=== PATIENT | male | born 1945 | race Caucasian/White ===

== ENCOUNTER 2017-01-14 09:36 | Inpatient (IN) | payer MEDICARE, OTHER ==
[~2017-01-14] VITALS: Ht 195.6 cm; Wt 75.3 kg
[~2017-01-14 09:36] MED LIST: 00186-0370-20 IH; ALEVE220 MG PO; ASMANEX TW0.22 MG/AC IH; ASPIRIN E.C. 8181 MG PO; CLARITIN 1010 MG/TAB PO; COLACE 100100 MG/CAP PO; FORADIL AERO0.012 MG IH; MEDI-FIRST ASP325 MG PO; NORVASC2.5 MG PO; OMEPRAZOLE20 MG PO; PROSCAR 5MG5 MG PO; PROSCAR PO; SPIRIVA RE2.5 MCG/Ac IH; THEO-DUR 2200 MG/TAB PO; VENTOLIN0.09 MG IH; VITAMIN D31000 I1 PO
[2017-01-14 10:58] LABS: HEMATOCRIT 42.3 % (42.0-52.0); HEMOGLOBIN 14.7 g/dl (13.5-18.0); MEAN CELL VOLUME 93 fl (80.0-100.0); MEAN CORPUSCULAR HEMOGLOBIN 32 pg (27.0-31.0); MEAN CORPUSCULAR HGB CONC 35 g/dl (33.0-37.0); MEAN PLATELET VOLUME 8.9 fl (7.4-10.4); PLATELET COUNT 234 K/mm3 (130-400); RED BLOOD COUNT 4.56 M/mm3 (4.20-5.60); WHITE BLOOD COUNT 4.6 K/mm3 (4.8-10.8)
[2017-01-14 11:00] LABS: ADJUSTED CALCIUM 9.4 mg/dL (8.4-10.2); ALBUMIN 3.8 gm/dL (3.5-5.0); BILIRUBIN,TOTAL 0.6 mg/dL (0.0-1.0); CALCIUM 9.2 mg/dL (8.4-10.2); CREATININE, serum 0.8 mg/dL (0.66-1.25)
[2017-01-14 11:09] LABS: ADD PATHOLOGY DIFF REVIEW NO
[2017-01-14 11:14] LABS: TROPONIN-I 0.111 ng/mL (0.000-0.034)
[2017-01-14] MEDS ORDERED: ALEVE 220MG220 MG PO (12:16)
[2017-01-14] MEDS ORDERED: PRILOSEC 20MG20 MG PO (12:16)
[2017-01-14 13:11] LABS: EOSINOPHIL 1 % (0-4); NEUTROPHILS 44 % (42.0-75.2); TOTAL CELLS COUNTED 100
[2017-01-14 13:15] LABS: HYPOCHROMIA 1+; POIKILOCYTOSIS 1+; TEAR DROP CELLS 1+
[2017-01-14 15:59] VITALS: BP 108/61; PULSE 69; TEMP 97.6
[2017-01-14 16:19] VITALS: BP 108/61; PULSE 66; TEMP 98
[2017-01-14 16:20] VITALS: BP 174/67; PULSE 74; TEMP 99.8
[2017-01-14] MEDS ORDERED: SINGULAIR 110 MG/TAB PO (18:45)
[2017-01-14 19:35] VITALS: BP 91/65; PULSE 77; TEMP 97.1
[2017-01-14 22:42] VITALS: BP 101/52; PULSE 106; TEMP 98.7
[2017-01-15 04:19] VITALS: BP 116/58; PULSE 64; TEMP 97.5
[2017-01-15 08:50] VITALS: BP 111/69; PULSE 79; TEMP 96.9
[2017-01-15 11:45] VITALS: BP 97/45; PULSE 77; TEMP 97.2
[2017-01-15 13:38] VITALS: BP 105/65; PULSE 88
[2017-01-15 16:23] VITALS: BP 90/50; PULSE 77; TEMP 97.6
[2017-01-15 21:13] VITALS: BP 111/58; PULSE 66; TEMP 98.1
[2017-01-16] VITALS (7 sets, daily range): BP systolic 92–122; BP diastolic 44–77; PULSE 60–77; TEMP 97.1–98
[2017-01-17 02:49] VITALS: BP 122/64; PULSE 57; TEMP 97.9
[2017-01-17 08:32] VITALS: BP 115/98; PULSE 67; TEMP 97.4
[2017-01-17 11:53] VITALS: BP 108/67; PULSE 71; TEMP 98.3
[2017-01-17 17:30] VITALS: BP 111/66; PULSE 75; TEMP 97.5
[2017-01-17 19:53] VITALS: BP 119/64; PULSE 70; TEMP 98
[2017-01-18 00:49] VITALS: BP 112/58; PULSE 104; TEMP 97.8
[2017-01-18 09:02] VITALS: BP 121/69; PULSE 64; TEMP 97.5
[2017-01-18 12:15] VITALS: BP 109/71; PULSE 67; TEMP 97.3
[2017-01-18 13:04] LABS: ARTERIAL BLD GAS O2 SATURATION 95.6 % (92-100); ARTERIAL BLD GAS TCO2 CT 25.5; ARTERIAL BLOOD GAS BASE EXCESS 1.2 (-2-2); ARTERIAL BLOOD GAS HCO3 24.5 meq/L (22-26); ARTERIAL BLOOD GAS PHT 7.47 C (7.35-7.45); ARTERIAL BLOOD GAS PO2 76.2 mmHg (80-100); ARTERIAL BLOOD GAS PO2T 76.2 (80-100); ARTERIAL BLOOD GAS pH 7.47 (7.35-7.45); OXYHEMOGLOBIN 94.9 %
[2017-01-18 13:06] LABS: ALLEN TEST YES; ALLENS TEST RESULT PASS; ATS? YES
[2017-01-18 15:42] VITALS: BP 99/54; PULSE 73; TEMP 97.5
[2017-01-18 21:25] VITALS: BP 107/62; PULSE 80; TEMP 97.7
[2017-01-19 00:07] VITALS: BP 113/75; PULSE 67; TEMP 97.9
[2017-01-19 04:32] VITALS: BP 100/55; PULSE 57; TEMP 97.5
[2017-01-19 08:02] VITALS: BP 105/72; PULSE 72; TEMP 96.9
[2017-01-19 11:19] VITALS: BP 109/69; PULSE 65; TEMP 97.6
[2017-01-19 15:34] VITALS: BP 108/68; PULSE 72; TEMP 97.7
[2017-01-19 20:10] VITALS: BP 122/81; PULSE 62; TEMP 97.4
[2017-01-20] VITALS (8 sets, daily range): BP systolic 96–115; BP diastolic 51–64; PULSE 60–107; TEMP 96.9–98.6
[2017-01-20] MEDS ORDERED: PREDNISONE20 MG PO ×2 (11:18→12:09)
[2017-01-20] MEDS ORDERED: PROSCAR 5MG5 MG PO (11:24)
[2017-01-20] MEDS ORDERED: MUCINEX DM 30 M1 TE1 PO (11:24)
== END 2017-01-20 15:04 | disposition home health service (06) | DRG 190 ==
LOC: COL.ER 09:36 → MEDICAL 14:29
PROVIDERS: Internal Medicine; Nurse Practitioner
DX: J44.1 Chronic obstructive pulmonary disease with (acute) exacerbation (principal); I21.4 Non-ST elevation (NSTEMI) myocardial infarction; E43 Unspecified severe protein-calorie malnutrition; I10 Essential (primary) hypertension; E86.0 Dehydration; F17.210 Nicotine dependence, cigarettes, uncomplicated; Z68.20 Body mass index [BMI] 20.0-20.9, adult
CPT/HCPCS: 99223-AI; 99232-AI; 99233-AI; 99239; A9502; J0456; J1650; J2550; J2785; J2930; J7030; J7040; J7050; Q9967

== ENCOUNTER 2019-04-18 10:59 | Inpatient (IN) | payer MEDICARE ==
[~2019-04-18] VITALS: Ht 193 cm; Wt 66.8 kg
[~2019-04-18 10:59] MED LIST changes: +ALEVE 220MG220 MG PO; +MUCINEX DM 30 M1 TE1 PO; +PREDNISONE20 MG PO; +PRILOSEC 20MG20 MG PO; +SINGULAIR 110 MG/TAB PO
[2019-04-18 11:39] LABS: BASO % 0.4 % (0.0-2.0); EOS % 0.2 % (0-4.0); GRAN # 4.2 (1.4-6.5); GRAN % 74.7 % (42.2-75.2); HEMATOCRIT 39.7 % (42.0-52.0); HEMOGLOBIN 13.9 g/dl (13.5-18.0); LYMPH # 1.1 (1.2-3.4); LYMPH % 19.3 % (20.0-51.0); MEAN CELL VOLUME 96 fl (80.0-100.0); MEAN CORPUSCULAR HEMOGLOBIN 34 pg (27.0-31.0); MEAN CORPUSCULAR HGB CONC 35 g/dl (33.0-37.0); MEAN PLATELET VOLUME 8.6 fl (7.4-10.4); MONO # 0.3 (0.1-0.6); MONO % 5.2 % (1.7-9.3); PLATELET COUNT 302 K/mm3 (130-400); RED BLOOD COUNT 4.12 M/mm3 (4.20-5.60); REDCELL DISTRIBUTION WIDTH-CV 13.2 % (11.5-14.5)
[2019-04-18 11:44] LABS: ALBUMIN 3.7 gm/dL (3.5-5.0); BILIRUBIN,TOTAL 0.4 mg/dL (0.0-1.0); CREATININE, serum 0.65 (0.66-1.25); POTASSIUM 4.3 mmol/L (3.4-5.0); TOTAL PROTEIN 6.6 gm/dL (6.4-8.2)
[2019-04-18 12:13] LABS: ARTERIAL BLD GAS O2 SATURATION 93.1 % (92-100); ARTERIAL BLD GAS TCO2 CT 25.6; ARTERIAL BLOOD GAS BASE EXCESS -0.1 (-2-2); ARTERIAL BLOOD GAS HCO3 24.4 meq/L (22-26); ARTERIAL BLOOD GAS PCO2 39.7 mmHg (35-45); ARTERIAL BLOOD GAS PO2 64.8 mmHg (80-100); ARTERIAL BLOOD GAS pH 7.41 (7.35-7.45)
[2019-04-18 13:12] LABS: TROPONIN-I < 0.012 ng/mL (0.000-0.035)
--- NOTE | 2019-04-18 14:30 | NUR ---
Pt admitted to ICU bed 2 at this time. Pt transported by bed. Pt placed on rn cardiac upon arrival to unit. Vitals stable upon arrival. Pt c/o a headace that is an intensity of 8/10. Will administer PRN Tylenol once Pt is settled into room. Dr. Cortez notified of Pt admission to unit, will be down to see Pt shortly.
[2019-04-18 15:10] VITALS: BP 127/76; PULSE 94; TEMP 97.6
--- NOTE | 2019-04-18 15:18 | NUR ---
Admission assessment complete at this time. Plan of care reviewed at bedside with patient et grandson. Vitals stable at this time. Additional time taken to address any other needs or concerns. Reports [id number] headache, Tylenol administered PRN per order. See EMAR for documentation. Bed in low and locked position, call light within reach, will continue to monitor.
[2019-04-18 16:00] VITALS: BP 116/61; PULSE 65; TEMP 98.1
--- NOTE | 2019-04-18 16:00 | NUR ---
Pt sleeping comfortably in bed. Vitals stable at this time. Pt reports that his headache has resolved after administration of PRN Tylenol. Will continue to monitor for effectiveness. Bed in low position, call light within reach. Denies any other complaints or concerns at this moment.
--- NOTE | 2019-04-18 18:00 | NUR ---
Arrived to the room at this time. No pain or needs reported. The call light is in reach.
[2019-04-18 19:36] VITALS: BP 114/66; PULSE 82; TEMP 98.2
--- NOTE | 2019-04-18 19:47 | NUR ---
Report given to Caroline. Rickie RN to resume care. No change since arrival to the floor.
[2019-04-18 22:55] VITALS: BP 123/68; PULSE 71; TEMP 97.7
--- NOTE | 2019-04-19 01:59 | NUR ---
1200: PATIENT LAYING IN BED WITH EYES CLOSED. PRESENTS WITH RELAXED BODY POSTURE AND EVEN NON LABORED RESPIRATION @ 16 PER MINUET. OXYGEN 2L/NC IN PLACE. NS @ 125ML/HR INFUSING ORDERED. CALL LIGHT WITHIN REACH.
[2019-04-19 03:20] VITALS: BP 126/73; PULSE 64; TEMP 98.2
[2019-04-19 06:32] LABS: BASO % 0.6 % (0.0-2.0); EOS % 0.9 % (0-4.0); GRAN # 1.8 (1.4-6.5); GRAN % 55.8 % (42.2-75.2); HEMOGLOBIN 12.4 g/dl (13.5-18.0); LYMPH # 1.1 (1.2-3.4); LYMPH % 32.8 % (20.0-51.0); MEAN CELL VOLUME 96 fl (80.0-100.0); MEAN CORPUSCULAR HEMOGLOBIN 33 pg (27.0-31.0); MEAN CORPUSCULAR HGB CONC 34 g/dl (33.0-37.0); MONO # 0.3 (0.1-0.6); MONO % 9.6 % (1.7-9.3); PLATELET COUNT 272 K/mm3 (130-400); RED BLOOD COUNT 3.74 M/mm3 (4.20-5.60)
[2019-04-19 06:39] LABS: CALCIUM 8.4 mg/dL (8.4-10.2); CREATININE, serum 0.62 (0.66-1.25); POTASSIUM 4.1 mmol/L (3.4-5.0)
[2019-04-19 07:09] VITALS: BP 123/69; PULSE 64; TEMP 97.6
--- NOTE | 2019-04-19 07:19 | NUR ---
The patient is sleeping soundly at this time. No signs of pain or needs. The call light is in place.
[2019-04-19 10:52] VITALS: BP 160/90; PULSE 67; TEMP 97.7
[2019-04-19 15:34] VITALS: BP 115/72; PULSE 87; TEMP 97.5
[2019-04-19 19:01] VITALS: BP 127/74; PULSE 65; TEMP 98
--- NOTE | 2019-04-19 20:54 | NUR ---
PT IN BED WITH HOB AT 30 DEGREE ANGLE, LAYING ON RIGHT SIDE. PT ADVISES THAT HE DOES NOT HAVE ANY PAIN ONLY IF HE LAYS FLAT. LUNG SOUND COARSE IN ALL CARMONA AND DENIES SOB. PT PLEASANT AND COOPERATIVE AND NOT HUNGRY AT THIS TIME. PT HAS NO NEEDS CALL LIGHT WITHIN REACH.
[2019-04-19 23:42] VITALS: BP 111/63; PULSE 70; TEMP 98.2
[2019-04-20 03:27] VITALS: BP 126/74; PULSE 67; TEMP 97.7
--- NOTE | 2019-04-20 05:16 | NUR ---
UNEVENTFUL NIGHT FOR PT. PT DID HAVE SOME BACK PAIN THAT HE COMPLAINED ABOUT AROUND 0300, WHICH HE WAS GIVEN TYLENOL FOR. PT GIVEN 360 ML OF WATER. PT STILL HAS NO DESIRE TO EAT OR DRINK. PT DOES USE CALL LIGHT WHEN GETTING OUT OF BED FOR ASSISTANCE. NO NEEDS AT THIS TIME, CALL LIGHT WITHIN REACH.
[2019-04-20 06:21] LABS: BASO % 0.6 % (0.0-2.0); EOS % 0.8 % (0-4.0); GRAN # 1.9 (1.4-6.5); GRAN % 54.4 % (42.2-75.2); LYMPH # 1.2 (1.2-3.4); LYMPH % 34.6 % (20.0-51.0); MEAN CELL VOLUME 95 fl (80.0-100.0); MEAN CORPUSCULAR HEMOGLOBIN 32 pg (27.0-31.0); MEAN CORPUSCULAR HGB CONC 34 g/dl (33.0-37.0); MEAN PLATELET VOLUME 8.7 fl (7.4-10.4); MONO # 0.3 (0.1-0.6); MONO % 9.3 % (1.7-9.3); PLATELET COUNT 271 K/mm3 (130-400); REDCELL DISTRIBUTION WIDTH-CV 12.6 % (11.5-14.5)
[2019-04-20 06:34] LABS: CALCIUM 8.2 mg/dL (8.4-10.2); CREATININE, serum 0.56 (0.66-1.25); POTASSIUM 3.7 mmol/L (3.4-5.0)
[2019-04-20 07:41] VITALS: BP 125/74; PULSE 56; TEMP 97
--- NOTE | 2019-04-20 11:02 | NUR ---
Pt alert and oriented this am. Pt reports nausea and back pain. Pain managed with PRN Tylenol. Pt has not had any emesis this am. Pt up to bathroom x1 assist. Pt dizzy at rest per report. Pt given PRN Zofran this am to manage nausea. Pt refusing PT and only getting up to bathroom. Pt also refusing to eat. Multiple options offered to pt and still denies food. Pt has call light in reach and am assessment and meds completed.
--- NOTE | 2019-04-20 11:20 | NUR ---
Initial visit; Patient thanked Ash Handler for looking in on him and offering God's blessings. Ash Handler will follow up.
[2019-04-20 11:41] VITALS: BP 124/62; PULSE 40; TEMP 97.6
--- NOTE | 2019-04-20 14:21 | NUR ---
EKG DONE SHOWN TO DR LUND AND LONI EDWARDS
--- NOTE | 2019-04-20 15:00 | NUR ---
SW met with patient about discharge planning. Patient lives at home alone. Patient's PCP is Dr. Hamlin or the [facility] and patient obtains prescriptions from [facility] or the [facility]. Patient uses a cane and O2 at home and patient has cleaning services paid for by the [facility] but no nursing, PT, or OT. Patient reports he has a DPOA but is unsure if a copy is in the EMR. Patient will be seen by PT and OT. SW will look for recommendations and follow up with patient after they're made.
[2019-04-20 17:24] VITALS: BP 106/59; PULSE 73; TEMP 98.1
--- NOTE | 2019-04-20 18:30 | NUR ---
Pt alert and oriented. Pt pain managed with requested Motrin and nausea with PRN Zofran. Pt remains on no free water restriction. Pt 1 assist to bathroom. Pt has 2L oxygen via nasal cannula and IV intact no redness or infiltration. Pt encouraged to move and do incentive spirometer. Pt not motivated to do anything and refused to work with PT today. Pt has call light in reach.
[2019-04-20 19:40] VITALS: BP 107/83; PULSE 67; TEMP 98.3
--- NOTE | 2019-04-20 20:44 | NUR ---
Initial shift assessment done- o2 at 2L/nc, Tele on, SOB when returning from bathroom-using purse lip breathing, Did take a couple minutes to breathe easier- Tele on, IV fluids of NS at 75cc/hr, Drinking his HS ensure but refusing any supper
[2019-04-20 23:42] VITALS: BP 104/57; PULSE 65; TEMP 98.3
[2019-04-21 04:07] VITALS: BP 121/73; PULSE 67; TEMP 97.9
--- NOTE | 2019-04-21 05:52 | NUR ---
Quiet night-- called for bathroom 3-4 times during the night- steady on feet , but SOB with any exertion. VSS, remains on o2 at 2L/nc
[2019-04-21 07:04] LABS: BASO % 0.4 % (0.0-2.0); EOS % 0.7 % (0-4.0); GRAN # 3.2 (1.4-6.5); GRAN % 71.6 % (42.2-75.2); HEMATOCRIT 38.3 % (42.0-52.0); HEMOGLOBIN 13.3 g/dl (13.5-18.0); LYMPH # 0.8 (1.2-3.4); LYMPH % 18.8 % (20.0-51.0); MEAN CELL VOLUME 94 fl (80.0-100.0); MEAN CORPUSCULAR HEMOGLOBIN 33 pg (27.0-31.0); MEAN CORPUSCULAR HGB CONC 35 g/dl (33.0-37.0); MEAN PLATELET VOLUME 8.8 fl (7.4-10.4); MONO # 0.4 (0.1-0.6); MONO % 8.3 % (1.7-9.3); PLATELET COUNT 294 K/mm3 (130-400); RED BLOOD COUNT 4.06 M/mm3 (4.20-5.60); REDCELL DISTRIBUTION WIDTH-CV 12.7 % (11.5-14.5)
[2019-04-21 07:20] LABS: CALCIUM 8.6 mg/dL (8.4-10.2); CREATININE, serum 0.55 (0.66-1.25); MAGNESIUM 1.7 mg/dL (1.6-2.3); POTASSIUM 3.7 mmol/L (3.4-5.0)
[2019-04-21 07:57] VITALS: BP 94/53; PULSE 70; TEMP 97.7
--- NOTE | 2019-04-21 08:00 | NUR ---
Pt sleeping in bed upon entry, easily awakened, shift assessments complete, left Pt call light in reach, bed in lowest position.
[2019-04-21 11:22] VITALS: BP 127/77; PULSE 72; TEMP 98
[2019-04-21 16:30] VITALS: BP 151/65; PULSE 48; TEMP 97.7
[2019-04-21 19:38] VITALS: BP 128/83; PULSE 50; TEMP 98.3
--- NOTE | 2019-04-21 19:38 | NUR ---
Pt was in bed during the day, he asked to use the restroom and staff tried to ambulate him, he stood and sat back in the bed unable to support his weight very long, Pt was able to transfer to the bedside commode with assistance of one. Pt was put under fall risk precautions by this [facility] for safety. Vs have remained stable throughout the shift, Pt has had no C/O pain he has had some C/O dizziness.
--- NOTE | 2019-04-21 21:21 | NUR ---
PT IN BED WITH HOB ELEVATED TO 30 DEGREE ANGLE. PT DENIES PAIN OR DISCOMFORT. PT IS SLEEPY AT THIS TIME. DAUGHTER HAD CALLED EARLIER AND ADVISED THAT PT TOLD HER THAT HE HAD FALLEN ON THE BED LAST NIGHT, WHEN HE TRIED TO GET UP AND USE THE BATHROOM. PT WAS ASKED AND HE ADVISED THAT HE DID FALL ON THE BED, BUT HE DID NOT REPORT IT TO ANYONE. PT WAS ADVISED THAT HE IS A HIGH FALL RISK AND THE BED ALARM IS ON, BUT ALSO TO CONTINUE TO USE CALL LIGHT IF HE HAS ANY NEEDS. PT ALSO OFFERED FOOD AND DRINKS, BUT HE DECLINES TO EAT OR DRINK. PT RESTING WITH BOTH EYES CLOSED. NO NEEDS AT THIS TIME. CALL LIGHT IN REACH AND BED ALARM ON.
[2019-04-21 23:43] VITALS: BP 125/69; PULSE 58; TEMP 98.1
--- NOTE | 2019-04-22 01:02 | NUR ---
PT HAS BEEN SLEEPING SINCE BEGINNING OF SHIFT. PT DOES EASILY WAKES UP AND ANSWERS QUESTIONS APPROPRIATELY. PT OFFERED SOMETHING TO DRINK, TO GO TO THE BATHROOM, AND A BREATHING TX, BUT PT DECLINED FOR ALL. ALSO, ASKED IF HE HAD ANY OTHER NEEDS BUT HE DECLINES WELL. PT WAS ASSISTED X1 TO BATHROOM BY REGISTERED NURSE FLOAT POOL AND PT WAS VERY WEAK. PT HAS BEEN IN BED WITH HOB ELEVATED TO 30 DREE ANGLE, BOTH FEET OUT OF BED, WITH BED ALARM ON. ASSISTED PT WITH PUTTING FEET BACK IN BED. PT WAS GIVEN TYLENOL P FOR BACK PAIN RATED AT 10/10 THAT FEELS LIKE SOMEONE HAMMERING ON HIS BACK. PT EASILY GOES BACK TO SLEEP AND NO FURTHER NEEDS AT THIS TIME. CALL LIGHT WITHIN REACH AND BED ALARM ON.
--- NOTE | 2019-04-22 02:09 | NUR ---
PT CONTINUES TO BE WEAK. PT USES CANE BUT CANE NO LONGER WORKING TO ASSIST PT TO AMBULATE. WALKER BROUGHT IN AND WORKING BETTER FOR PT. PT ASSISTED X1 TO BATHROOM AND BACK TO BED. CALL LIGHT WITHIN REACH AND BED ALARM ON.
[2019-04-22 03:55] VITALS: BP 101/49; PULSE 51; TEMP 97.9
--- NOTE | 2019-04-22 05:04 | NUR ---
PT IN BED WITH HOB ELEVATED TO 45 DEGREE ANGLE. NO S/S OF PAIN OR DISCOMFORT AND RESP EVEN AND UNLABORED. CALL LIGHT WITHIN REACH AND BED ALARM IS ON.
--- NOTE | 2019-04-22 06:13 | NUR ---
PT OFFERED BREAKFAST AND ADVISED THAT IT WILL HELP HIM WITH HIS STRENGTH IF HE ATE SOME FOOD. PT DECLINED TO ORDER BREAKFAST AT THIS TIME. ADVISED PT WILL CHECK BACK WITH HIM LATER. CALL LIGHT WITHIN REACH AND BED ALARM ON.
[2019-04-22 06:23] LABS: BASO % 0.8 % (0.0-2.0); EOS % 0.8 % (0-4.0); GRAN # 1.9 (1.4-6.5); GRAN % 48.4 % (42.2-75.2); HEMATOCRIT 37.7 % (42.0-52.0); HEMOGLOBIN 13.3 g/dl (13.5-18.0); LYMPH # 1.6 (1.2-3.4); LYMPH % 38.9 % (20.0-51.0); MEAN CELL VOLUME 94 fl (80.0-100.0); MEAN CORPUSCULAR HEMOGLOBIN 33 pg (27.0-31.0); MEAN CORPUSCULAR HGB CONC 35 g/dl (33.0-37.0); MEAN PLATELET VOLUME 8.7 fl (7.4-10.4); MONO # 0.4 (0.1-0.6); MONO % 10.8 % (1.7-9.3); PLATELET COUNT 300 K/mm3 (130-400); RED BLOOD COUNT 4.03 M/mm3 (4.20-5.60); REDCELL DISTRIBUTION WIDTH-CV 12.5 % (11.5-14.5)
[2019-04-22 06:56] LABS: CALCIUM 8.8 mg/dL (8.4-10.2); CREATININE, serum 0.55 (0.66-1.25); MAGNESIUM 1.7 mg/dL (1.6-2.3); POTASSIUM 3.4 mmol/L (3.4-5.0)
[2019-04-22 08:25] VITALS: BP 108/66; PULSE 83; TEMP 97.9
--- NOTE | 2019-04-22 10:39 | NUR ---
Assessment completed, alert/oriented, vital signs stable, reports ongoing headache/ discussed MRI brain results of NO acute findings, patient refusing to eat and stated this has been ongoing for about a year, heart RRR, lungs CTA/ diminished, report from nursing staff that general weakness is worsening, i have discussed plan of care with the Attending hospitalist
[2019-04-22 14:22] VITALS: BP 132/81; PULSE 80; TEMP 97.7
[2019-04-22 16:36] VITALS: BP 134/75; PULSE 84; TEMP 98.2
[2019-04-22 19:27] VITALS: BP 117/85; PULSE 77; TEMP 98.7
--- NOTE | 2019-04-22 20:00 | NUR ---
PT RESTING IN BED a+oX4. IV FLUSHES WELL, NO REDENSS. NO SWELLING. SHIFT ASSESSMENT COMPLETE. PT ATE 50% OF DINNER. NO NEEDS AT THIS TIME.CALL LIGHT IN REACH BED ALARM ON
--- NOTE | 2019-04-22 22:45 | NUR ---
pt resting in bed A+Ox4. pt currently eating dinner- 50% eaten. pain reported- prn meds given and reported some relief. shift assessment complete. IV flushes well. no redness, no swelling. assisted with urinal. no needs at this time. call light in reach
[2019-04-22 23:37] VITALS: BP 113/61; PULSE 73; TEMP 98.5
[2019-04-23] VITALS (11 sets, daily range): BP systolic 102–150; BP diastolic 62–84; PULSE 67–95; TEMP 97.4–98.4
--- NOTE | 2019-04-23 05:12 | NUR ---
PT HAD AN UNEVENTFUL NIGHT. NPO SINCE MIDNIGHT. FALL PRECAUTIONS IN PLACE. PT SLEPT THROUGHOUT NIGHT. ASSISTED WITH URINAL DURING NIGHT. NO NEEDS AT THIS TIME. CALL LIGHT IN REACH. BED ALARM ON
[2019-04-23 07:04] LABS: BASO % 0.7 % (0.0-2.0); EOS # 0.1 (0.0-0.7); EOS % 2.4 % (0-4.0); GRAN # 2.4 (1.4-6.5); HEMATOCRIT 38.8 % (42.0-52.0); HEMOGLOBIN 13.4 g/dl (13.5-18.0); LYMPH # 1.2 (1.2-3.4); LYMPH % 28.2 % (20.0-51.0); MEAN CELL VOLUME 94 fl (80.0-100.0); MEAN CORPUSCULAR HEMOGLOBIN 33 pg (27.0-31.0); MEAN CORPUSCULAR HGB CONC 35 g/dl (33.0-37.0); MEAN PLATELET VOLUME 9.2 fl (7.4-10.4); MONO # 0.4 (0.1-0.6); MONO % 10.2 % (1.7-9.3); PLATELET COUNT 325 K/mm3 (130-400); RED BLOOD COUNT 4.12 M/mm3 (4.20-5.60); REDCELL DISTRIBUTION WIDTH-CV 12.7 % (11.5-14.5)
[2019-04-23 07:19] LABS: ALBUMIN 3.2 gm/dL (3.5-5.0); BILIRUBIN,TOTAL 0.7 mg/dL (0.0-1.0); CREATININE, serum 0.59 (0.66-1.25); POTASSIUM 3.1 mmol/L (3.4-5.0); TOTAL PROTEIN 5.8 gm/dL (6.4-8.2)
--- NOTE | 2019-04-23 07:22 | NUR ---
report given to BRANDON Barbosa. pt reports no needs
--- NOTE | 2019-04-23 10:15 | NUR ---
Patient laying in bed. Assessment complete. Patient communication short, uninterested in cares. A&O. Lungs diminished throughout. Heart RRR. Patient on 2L NC. C/O SOB at baseline. C/O chest pain, headache and back pain. rating pain 10/10. Administered PRN tylenol. Daughter called to state "by 9pm last night there was not a recliner in the room, this is a must. The bed is hurting his back". Upon entering room, there is a recliner beside the bed. Asked patient if he would like to get up to chair this afternoon after EGD procedure. patient is willing. Patient is currently NPO. Talked with patient about eating afterwards, states he "doesn't have much of appetite". RFA INT IV has some drainage, no fluids running. Potassium IV started, patient not tolerating, stopped. Had route changed to oral. Will administer after EGD. Call light within reach. No other needs.
--- NOTE | 2019-04-23 10:49 | NUR ---
SW attended clinical rounds. Patient is not wanting to eat or work much with therapy. Doctor stressed that patient needs to eat and work with therapy. Doctor also reported that patient will likely need post acute rehab. SW will follow up with patient about post acute rehab after he is seen by PT/OT today.
--- NOTE | 2019-04-23 12:23 | NUR ---
PATIENT DOWN FOR PROCEDURE. ESCORTED IN BED BY KELVIN GRIGSBY.
--- NOTE | 2019-04-23 13:42 | NUR ---
Patient back up to room. Patient drowsy but arousable. Post op vitals started.
--- NOTE | 2019-04-23 17:12 | NUR ---
SW met with patient about SNF choice. SW provided [email or web address] resource list. Patient was also informed about IPR by doctor. Patient reported he would like to review options and speak with the SW tomorrow morning.
--- NOTE | 2019-04-23 19:28 | NUR ---
REPORT GIVEN TO BRANDON BALTAZAR.
--- NOTE | 2019-04-23 20:44 | NUR ---
pt resting in bed A+Ox4. reported 10/10 pain in back- PRN meds given. pt on 2L VIA NC. pt reports SOA- VSS. no free water given. shift assessment complete. ate 100% of dinner. no needs at this time. call light in reach.
--- NOTE | 2019-04-24 02:24 | NUR ---
PT HAS BEEN SLEEPING DURING NIGHT. TELE ON. ASSISTED TO BSC- NOW RESTING IN BED. NO COMPAINTS AT THIS TIME, CALL LIGHT IN REACH, BED ALARM ON
[2019-04-24 04:07] VITALS: BP 130/85; PULSE 67; TEMP 98.2
--- NOTE | 2019-04-24 05:34 | NUR ---
PT HAD AN UNEVENTFUL NIGHT. SLEPT DURING NIGHT. NO COMPLAINTS OF PAIN. ASSISTED TO BSC DURING NIGHT. PT ON ON 2 L VIA NC. ECOURAGED FLUIDS- REFUSED. NO NEEDS AT THIS TIME. CALL LIGHT IN REACH. BED ALARM ON
[2019-04-24 06:57] LABS: BASO % 0.8 % (0.0-2.0); EOS # 0.1 (0.0-0.7); EOS % 2.6 % (0-4.0); GRAN # 2.1 (1.4-6.5); GRAN % 55.6 % (42.2-75.2); HEMATOCRIT 37.5 % (42.0-52.0); HEMOGLOBIN 13.1 g/dl (13.5-18.0); LYMPH # 1.2 (1.2-3.4); LYMPH % 32.3 % (20.0-51.0); MEAN CELL VOLUME 94 fl (80.0-100.0); MEAN CORPUSCULAR HEMOGLOBIN 33 pg (27.0-31.0); MEAN CORPUSCULAR HGB CONC 35 g/dl (33.0-37.0); MEAN PLATELET VOLUME 8.9 fl (7.4-10.4); MONO # 0.3 (0.1-0.6); MONO % 8.2 % (1.7-9.3); PLATELET COUNT 339 K/mm3 (130-400); RED BLOOD COUNT 3.98 M/mm3 (4.20-5.60); REDCELL DISTRIBUTION WIDTH-CV 12.6 % (11.5-14.5)
--- NOTE | 2019-04-24 07:03 | NUR ---
report given to BRANDON Herman. pt sleeping
[2019-04-24 07:09] LABS: CALCIUM 8.9 mg/dL (8.4-10.2); CREATININE, serum 0.6 (0.66-1.25); POTASSIUM 3.6 mmol/L (3.4-5.0)
--- NOTE | 2019-04-24 07:26 | NUR ---
Report received from BRANDON Mayers. Pt resting in bed comfortably. Call light in reach.
[2019-04-24 08:08] VITALS: BP 117/76; PULSE 77; TEMP 97.3
--- NOTE | 2019-04-24 09:17 | NUR ---
Pt resting in bed alert and oriented. Pt c/o lower back and shoulder, which is "chronic" per pt. Call light in reach. Pt's breakfast ordered by BRANDON Herman to encourage pt to eat.
--- NOTE | 2019-04-24 11:06 | NUR ---
Pt gettomg bed bath in bed. No concern at this time. Call light in reach.
[2019-04-24 12:28] VITALS: BP 110/70; PULSE 81; TEMP 97.6
--- NOTE | 2019-04-24 14:43 | NUR ---
Pt resting in bed and c/o back and shoulder pain. Pt agreed to take Tylenol. Call light in reach.
[2019-04-24 16:04] VITALS: BP 98/61; PULSE 79; TEMP 98.1
--- NOTE | 2019-04-24 18:01 | NUR ---
Pt having dinner in chair w. no concern. Pt denied pain. Call light in reach.
--- NOTE | 2019-04-24 18:03 | NUR ---
Pt resting in bed. Pt's dinner has been ordered. Call light in reach.
[2019-04-24 19:02] VITALS: BP 115/58; PULSE 78; TEMP 98.1
--- NOTE | 2019-04-24 19:07 | NUR ---
Report given to BRANDON Mayers. Pt resting in bed comfortably. Call light in reach.
--- NOTE | 2019-04-24 19:40 | NUR ---
PT RESTING IN BED A+OX4. reports his chronic shoulder pain- tylenol given previously. will encourage fluids. 30% of meal eaten. shift assessment complete. pt on 2L via NC. vss. no needs at this time. call light in reach. bed alarm on
[2019-04-24 23:01] VITALS: BP 110/74; PULSE 73; TEMP 97.7
--- NOTE | 2019-04-25 01:53 | NUR ---
pt sleeping during night. encouraging fluids- is not interested.
[2019-04-25 03:57] VITALS: BP 123/83; PULSE 68; TEMP 98.4
--- NOTE | 2019-04-25 05:34 | NUR ---
PT HAD AN UNEVENTFUL NIGHT. CHRONIC SHOULDER PAIN REPORTED AT BEGINNING OF THE NIGHT. PT SLEPT THORUGHOUT NIGHT. PT DID NOT URINATE THROUGHOUT NIGHT- PT DID NOT DRINK OR EAT DURING NIGHT. NO NEEDS AT THIS TIME. CALL LIGHT IN REACH, BED ALARM ON
[2019-04-25 06:35] LABS: CALCIUM 9.2 mg/dL (8.4-10.2); CREATININE, serum 0.64 (0.66-1.25); POTASSIUM 3.8 mmol/L (3.4-5.0)
--- NOTE | 2019-04-25 07:23 | NUR ---
REPORT GIVEN TO BRANDON BELCHER. PT REPORTS NO NEEDS
[2019-04-25 07:31] VITALS: BP 126/78; PULSE 69; TEMP 98
--- NOTE | 2019-04-25 07:59 | NUR ---
Pt assessment complete. Pt is sitting up in bed upon entry, he is sleeping but arouses to voice. Pt reports back pain 10/10, PRN Tylenol administered. Pt denies any N/V. No SOB. Pt tolerating gatorade without issues. Pt offered a shower this morning he declined stating "I can barely stand none the less shower". Bed bath offered, pt declined. POC discussed with patient. He denies any needs at this time. Call light within reach.
--- NOTE | 2019-04-25 11:38 | NUR ---
Met with patient on choice for Nursing care SNF Rehab. Patient reports that he does not care which on he goes to as long as it is local. Patient signed choice form. Patient indciated that screen for all was appropriate. SW sent referrals to [facility] , [facility] , and [facility] . Awaiting screen results. Patient reports that he wants his grandson Pedrito apart of his care,. HOLA attempted call and could not leave message on indentified VM. Will continue to follow
[2019-04-25 11:45] VITALS: BP 101/65; PULSE 85; TEMP 98
--- NOTE | 2019-04-25 14:00 | NUR ---
Pt ate chicken and noodles, pudding and mashed potatoes for lunch. No N/V present will continue to monitor.
[2019-04-25 15:27] VITALS: BP 98/67; PULSE 84; TEMP 97.5
--- NOTE | 2019-04-25 16:32 | NUR ---
Pt sleeping, family brought by a chocolate milkshake, will encourage patient to eat. Does not appear to be in any pain or distress. Will continue to monitor.
--- NOTE | 2019-04-25 19:24 | NUR ---
Pt slept through most of the day. He reported pain once during shift, PRN Tylenol administered. Pt tolerated lunch and dinner thus far without N/V. Pt report given to BRANDON Blake. Call light within reach.
[2019-04-25 20:19] VITALS: BP 111/68; PULSE 83; TEMP 98.4
--- NOTE | 2019-04-25 20:30 | NUR ---
Initial shift assessment done- resting, watching some TV, states having some back pain 04/02- will give Tylenol as ordered,, voided 200cc per urinal- no requests at this time
[2019-04-25 23:43] VITALS: BP 107/70; PULSE 84; TEMP 98.3
[2019-04-26 03:54] VITALS: BP 104/71; PULSE 78; TEMP 97.5
--- NOTE | 2019-04-26 06:27 | NUR ---
Quiet night- VSS, did sleep fairly well- no requests.
[2019-04-26 07:30] VITALS: BP 110/78; PULSE 70; TEMP 97.9
--- NOTE | 2019-04-26 11:33 | NUR ---
Radha, at [facility], reports that they can accept the patient; but that they need to get prior-auth from his insurance. Morenita, from [facility], reports that she would like to come up to the hospital and screen the patient around 1330 today. SW to inform the patient and will continue to follow.
[2019-04-26 11:53] VITALS: BP 102/67; PULSE 86; TEMP 98.4
--- NOTE | 2019-04-26 12:18 | NUR ---
PT SITTING UPRIGHT IN BED. IN TO GIVE AM MEDS. SL INTACT IN R FOREARM. NO SIGNS OF INFILTRATION. THERE IS A SMALL AMT DRIED BLOOD UNDER DRESSING. ASSIST TO CHAIR WITH 2:1 ASSIST USING WALKER AND GAIT BELT. UNSTEADY. INCONTINENT OF URINE. WIPED WITH CLOTHS OF PT'S PER HIS REQUEST. BECOMES VERY SOA WITH ACTIVITY. REFUSES O2 ON UNTIL HE IS BACK IN BED. BACK TO BED AND O2 ON 2L/NC. HAS YELLOW SLIPPER SOCKS ON. DENIES PAIN.
--- NOTE | 2019-04-26 13:05 | NUR ---
The hospitalist would like to have a family meeting with the patient's daughter. HOLA then met with the patient to update on the SNF referrals, discuss having a family meeting, and to inquire his daughter's phone number. The patient informed HOLA that his daughter's name is Libertad, but he refused to give SW his daughters number. He states that he can make decisions and that he can contact her. He states that he could then provide his daughter with 's phone number. HOLA provided the patient with phone number. A psych consult was ordered. Psych to meet with the patient today. SW to continue to follow.
[2019-04-26 15:26] VITALS: BP 103/69; PULSE 79; TEMP 97.9
--- NOTE | 2019-04-26 16:33 | NUR ---
Jordan, at [facility], reports that the patient's insurance is [id number] with them. SW to inform the patient and continue to follow.
--- NOTE | 2019-04-26 16:44 | NUR ---
HOLA contacted the patient's grandson, Pedrito, to update on referrals and to inform of the patient tentatively discharging tomorrow. The patient's grandson was supportive of the patient going to a facility. Pedrito also provided HOLA with his mother's (Caprice) phone number [phone]. Pedrito informed HOLA that the patient is stubborn and if he does not want to do something, he will not. Pedrito requests that HOLA keep him updated on discharge plan. HOLA to continue to follow.
--- NOTE | 2019-04-26 18:11 | NUR ---
Pt's daughter called feed house supervisor concerned no one has been calling her and keeping her updated on the patient's status. This nurse and Evelyn RN, spoke with the patient regarding permission to speak with his daughter. Pt states "I would rather right now than speak to her". Asked the patient again if he gives us permission to talk to her and give her an update, pt again states "don't tell that bitch anything." Pt reassured we would not be speaking with her per his wishes. Pt requesting dinner, ordered for patient. Warm pack provided for L back pain. Call light within reach.
--- NOTE | 2019-04-26 19:12 | NUR ---
Pt had a good day. More cooperative and agreeable to cares. Attempted to sit up in the chair, but patient was too uncomfortable. Agreeable to a bed bath and linen change. Continued pain, pt reports PRN tylenol is not helpful. Pt ate more today, requested foods to nursing staff. Report given to BRANDON Lim. Call light within reach.
--- NOTE | 2019-04-26 19:25 | NUR ---
Recvd call from patient's daughter, Caprice. States she has been unable to receive update, unhappy about father's care and requests transfer to [facility]. Daughter states she is DPOA, documentation requested, will fax documents annita. Caprice [phone].
--- NOTE | 2019-04-26 20:45 | NUR ---
MAUREEN Begum notified of daughter's request for status update and transferred. CARBIDE TOOL DIE MAKER will visit with patient for consent as no DPOA documentation has been received.
--- NOTE | 2019-04-26 21:10 | NUR ---
Spoke to patient with MAUREEN Begum. Patient give verbal consent for daughter to be given status updates. Patient also states he would like to be transferred. At this time patient was alert and oriented to self, place and date.
[2019-04-26 21:25] VITALS: BP 112/78; PULSE 78; TEMP 97.5
--- NOTE | 2019-04-26 22:00 | NUR ---
PT HAD REFUSED VITALS BY MALT HOUSE LOADER ON FIRST ATTEMPT, WAS REATTEMPTED LATER, PT WAS PLEASENT AND COOPERATIVE AT THAT TIME. NO OTHER COMPLAINTS VOICED AT THIS TIME
--- NOTE | 2019-04-26 22:37 | NUR ---
Attempted to contact Caprice. No answer on cell phone. Message left.
[2019-04-26 23:40] VITALS: BP 118/78; PULSE 75; TEMP 98.1
[2019-04-27] VITALS (9 sets, daily range): BP systolic 94–123; BP diastolic 58–77; PULSE 65–93; TEMP 97.1–98.9
--- NOTE | 2019-04-27 05:57 | NUR ---
PT HAD UNEVENTFUL NOC. NO ISSUES OR CONSERNS VOICED OVERNIGHT. APPEARED TO HAVE SLEPT WELL.
[2019-04-27 06:57] LABS: BASO % 0.3 % (0.0-2.0); EOS # 0.1 (0.0-0.7); EOS % 1.6 % (0-4.0); GRAN # 3.5 (1.4-6.5); HEMATOCRIT 39.8 % (42.0-52.0); HEMOGLOBIN 13.5 g/dl (13.5-18.0); LYMPH # 1.6 (1.2-3.4); LYMPH % 28.2 % (20.0-51.0); MEAN CELL VOLUME 97 fl (80.0-100.0); MEAN CORPUSCULAR HEMOGLOBIN 33 pg (27.0-31.0); MEAN CORPUSCULAR HGB CONC 34 g/dl (33.0-37.0); MONO # 0.5 (0.1-0.6); MONO % 8.6 % (1.7-9.3); PLATELET COUNT 363 K/mm3 (130-400); RED BLOOD COUNT 4.11 M/mm3 (4.20-5.60); REDCELL DISTRIBUTION WIDTH-CV 13.6 % (11.5-14.5)
[2019-04-27 07:12] LABS: CALCIUM 9.4 mg/dL (8.4-10.2); CREATININE, serum 0.62 (0.66-1.25); POTASSIUM 4.4 mmol/L (3.4-5.0)
--- NOTE | 2019-04-27 09:21 | NUR ---
PT reports pt refusing to walk or sit up on the side of the bed this morning.
--- NOTE | 2019-04-27 10:30 | NUR ---
Pt assessment complete. Pt is sleeping upon entry, arouses to voice. Breathing is even and unlabored on 2L O2 via NC, dyspneic with any movement. Pt denies SOB. No pain at this time. Pt denies any needs at this time. Call light within reach. Will continue to monitor.
--- NOTE | 2019-04-27 10:56 | NUR ---
HOLA attended clinical rounds. The patient and patient's daughter are wanting to transfer to the [facility]. The hospitalist discussed having a second option, if the [facility] is unable to accept. The patient verbalized understanding. HOLA then contacted and faxed the patient's clinical information to Kavya at the [facility]. Kavya reports that the patient does not qualify for an acute stay at their hospital. HOLA informed the patient's PA. Gas Welder, Milagros, informed HOLA that she has spoke to the patient's daughter an that the daughter has been in contact with the [facility] with the [facility] for the patient to transfer to one of their facilities. HOLA contacted Erin at the [facility]. Erin reports that she does not have the patient's information, but that she could fax HOLA a admissions referral packet. Radha, at [facility], reports that she has received approval from the patient's insurance and are able to accept. HOLA met with the patient to update and inform. The patient reports that he will speak to his daughter and asked HOLA to come back around 1200. HOLA to follow up with the patient.
[2019-04-27] MEDS ORDERED: MIRTAZAPINE7.5 MG PO (13:26)
[2019-04-27] MEDS ORDERED: MIRALAX PA17 GM/Dose PO (13:27)
--- NOTE | 2019-04-27 17:08 | NUR ---
HOLA had faxed a referral to Erin at the [facility]. HOLA then followed up with the patient. The patient reports that he had spoke to his daughter and that he would be agreeable to transfer to [facility]. Radha, at [facility], then contacted HOLA to inform that the patient's insurance is requiring additional information and that they may not approve the patient's stay now, due to him refusing to work with therapy. HOLA then followed up with the patient and patient's grandson, Pedrito, to update and inform. HOLA also consulted Isma with PT. The patient then became cooperative with working with PT. HOLA faxed the patient's PT Note to [facility]. Erin, at [facility], then contacted [facility] to inform that they can accept the patient and that she had spoke to the patient and his grandson and they are agreeable to transfer there. HOLA followed up with the patient and patient's grandson. The patient reports that he is agreeable to go there. HOLA informed the patient's PA. The patient's grandson plans to transfer the patient to the facility tomorrow morning, 04/28. HOLA to continue to follow.
--- NOTE | 2019-04-27 18:51 | NUR ---
Pt had uneventful day, slept most of the day. Refused PT twice today, but sat up on side of bed and to [facility] with the FARM MACHINERY SET UP MECHANIC. Pt tolerated diet without complications. Denied pain through the day. Continues to wear 2L O2 via NC. Pt resting at this time. Call light within reach.
--- NOTE | 2019-04-27 19:42 | NUR ---
REPORTS NO BM FOR 10-12 DAYS.
--- NOTE | 2019-04-27 20:45 | NUR ---
PT RESTING IN BED, EATING DINNER. 100% EATEN. REPORTS "SO SO" PAIN- DENIES NEEDS FOR INTERVENTION . PT REPORTS NO SOA. NO NEEDS AT THIS TIME. CALL LIGHT IN REACH BED AALRM ON
[2019-04-28 03:52] VITALS: BP 112/75; PULSE 74; TEMP 99.7
--- NOTE | 2019-04-28 05:48 | NUR ---
PT HAD AN UNEVENTFUL NIGHT. REPORTED NO PAIN THAT NEEDED INTERVENTION. FALL PRECAUTIONS IN PLACE. PT HAD 175 ML OUTPUT DURING NIGHT. ENCOURAGE ORAL INTAKE OF FLUIDS AND FOOD. IV FLUSHES WELL, NO SWELLING, NO PAIN. NO NEEDS AT THIS TIME. CALL LIGHT IN REACH. BED ALARM ON
--- NOTE | 2019-04-28 07:05 | NUR ---
REPORT GIVEN TO BRANDON ACOSTA. PT REPORTS NO NEEDS
[2019-04-28 07:45] VITALS: BP 119/74; PULSE 74; TEMP 98.2
--- NOTE | 2019-04-28 07:57 | NUR ---
Pt alert and oriented. Pt resting in bed and denies needs. Pt given am meds and am assessment completed. Pt wears oxygen with minimal exertion via nasal cannula. Pt IV clean dry no redness or infiltration. Pt has call light in reach.
[2019-04-28 09:05] VITALS: BP 102/77; PULSE 80; TEMP 98.6
--- NOTE | 2019-04-28 10:29 | NUR ---
The patient is to discharge today, 04/28, to the [facility] for a skilled stay. Transportation to be by private car, via the patient's grandson (Pedrito). The patient was in need of oxygen for the ride to the facility. [facility] was notified and they provided a portable tank to the patient. The patient's grandson is to return the tank back to the hospital. HOLA notified Erin at the [facility] of the patient's departure from the hospital. HOLA also presented and explained the IM form to the patient on 04/27. The patient verbalized understanding, signed, and he was provided a copy. No additional needs at this time. HOLA also updated Radha at [facility].
--- NOTE | 2019-04-28 10:58 | NUR ---
First visit from the administrative technician. No needs right now.
--- NOTE | 2019-04-28 12:45 | NUR ---
Pt alert and oriented. Pt discharge orders given for transfer to [facility] in [place]. Grandson here to transfer pt. 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 Pt escorted to lesley's truck via wheelchair without issue. Report called to Lucille at [facility].
== END 2019-04-28 10:00 | DRG 193 ==
LOC: COL.ER 10:59 → ICU 13:26 → MEDICAL 18:02
PROVIDERS: Family Medicine; Internal Medicine Gastroenterology; Nurse Practitioner Family; Physician Assistant; ADMIT Family Medicine
PROC: 0DB78ZX Excision of Stomach, Pylorus, Via Natural or Artificial Opening Endoscopic, Diagnostic (ICD-10-PCS; principal; 2019-04-23 13:30)
DX: J18.1 Lobar pneumonia, unspecified organism (principal); E43 Unspecified severe protein-calorie malnutrition; J44.0 Chronic obstructive pulmonary disease with (acute) lower respiratory infection; J96.11 Chronic respiratory failure with hypoxia; E87.1 Hypo-osmolality and hyponatremia; Z68.1 Body mass index [BMI] 19.9 or less, adult; N40.0 Benign prostatic hyperplasia without lower urinary tract symptoms; J30.2 Other seasonal allergic rhinitis; Z66 Do not resuscitate; E87.6 Hypokalemia; K29.70 Gastritis, unspecified, without bleeding; K21.9 Gastro-esophageal reflux disease without esophagitis; R62.7 Adult failure to thrive; F17.210 Nicotine dependence, cigarettes, uncomplicated; D64.9 Anemia, unspecified; I10 Essential (primary) hypertension; F43.21 Adjustment disorder with depressed mood; Z88.2 Allergy status to sulfonamides; Z86.73 Personal history of transient ischemic attack (TIA), and cerebral infarction without residual deficits
CPT/HCPCS: OP; 99231-AI; 99232-AI; 99233-AI; A9284; A9585; G0103; G0378; J0456; J0696; J1650; J1885; J2405; J2704; J3480; J7030; J7050; Q9967

== ENCOUNTER → 2019-09-15 | Outpatient (CLI) | payer OTHER ==
[~2019-09-15] MED LIST changes: +MIRALAX PA17 GM/Dose PO; +MIRTAZAPINE7.5 MG PO
[2019-09-15 10:13] LABS: ARTERIAL BLD GAS O2 SATURATION 94.4 % (92-100); ARTERIAL BLD GAS TCO2 CT 26.1; ARTERIAL BLOOD GAS BASE EXCESS 1.3 (-2-2); ARTERIAL BLOOD GAS PCO2 36.7 mmHg (35-45); ARTERIAL BLOOD GAS PO2 66.4 mmHg (80-100); ARTERIAL BLOOD GAS pH 7.45 (7.35-7.45)
== END ==
LOC: COL.PUL 09:58
PROVIDERS: Internal Medicine Pulmonary Disease
DX: J44.9 Chronic obstructive pulmonary disease, unspecified (principal)

== ENCOUNTER → 2021-05-03 | Outpatient (REF) ==
[~2021-05-03] MED LIST changes: +CARDURA 1MG1 MG PO; +DIGITEK0.125 MG PO; +NORCO 325 MG-51 TAB PO; +ONE-A-DAY ESSE1 EACH PO; +OXYGEN NASAL.CANN; +PRILOTC PO; +PROVENTIL0.09 MG/A1 IH; +SENOKOT S 50 MG1 TAB PO; +SSKI1 GM/ML PO; +THEO-24100 MG PO; +VITAMIN D31000 IU PO; +ZITHROMAX500 M2 PO
[2021-05-03 16:28] LABS: COLLECTION METHOD CLEAN CATCH
[2021-05-03 16:36] LABS: PH 6 (5-8); SQUAMOUS EPITHELIAL 0-2 /hpf; URINE APPEARANCE Clear; URINE BACTERIA None Seen /hpf; URINE BILIRUBIN Negative (NEGATIVE); URINE BLOOD Negative (NEGATIVE); URINE COLOR Yellow; URINE GLUCOSE Negative (NEGATIVE); URINE KETONE Negative (NEGATIVE); URINE LEUKOCYTE ESTERASE Negative (NEGATIVE); URINE NITRATE Negative (NEGATIVE); URINE PROTEIN(semi-quant) Negative (NEGATIVE); URINE UROBILINOGEN Negative (NEGATIVE)
[2021-05-03 16:40] LABS: CHOLESTEROL RISK RATIO 3.2
[2021-05-03 16:44] LABS: BASO % 0.8 % (0.0-2.0); EOS # 0.2 (0.0-0.7); EOS % 3.2 % (0-4.0); GRAN # 2.3 (1.4-6.5); GRAN % 49.2 % (42.2-75.2); HEMOGLOBIN 11.5 g/dl (13.5-18.0); LYMPH # 1.9 (1.2-3.4); LYMPH % 40.5 % (20.0-51.0); MEAN CELL VOLUME 99 fl (80.0-100.0); MEAN CORPUSCULAR HEMOGLOBIN 34 pg (27.0-31.0); MEAN CORPUSCULAR HGB CONC 34 g/dl (33.0-37.0); MEAN PLATELET VOLUME 8.8 fl (7.4-10.4); MONO # 0.3 (0.1-0.6); MONO % 6.1 % (1.7-9.3); PLATELET COUNT 307 K/mm3 (130-400); RED BLOOD COUNT 3.42 M/mm3 (4.20-5.60); REDCELL DISTRIBUTION WIDTH-CV 13.2 % (11.5-14.5)
[2021-05-03 17:22] LABS: THYROID STIMULATING HORMONE 0.425 uIU/mL (0.465-4.680)
== END ==
LOC: ZLAB.STJ 16:25
PROVIDERS: Family Medicine
DX: E87.1 Hypo-osmolality and hyponatremia (principal); E44.0 Moderate protein-calorie malnutrition; R97.20 Elevated prostate specific antigen [PSA]; R63.4 Abnormal weight loss

== ENCOUNTER → 2021-05-10 | Outpatient (REF) ==
[2021-05-10 16:02] LABS: BASO % 0.8 % (0.0-2.0); EOS # 0.2 (0.0-0.7); EOS % 3.2 % (0-4.0); GRAN # 2.5 (1.4-6.5); GRAN % 46.3 % (42.2-75.2); HEMOGLOBIN 11.3 g/dl (13.5-18.0); LYMPH # 2.4 (1.2-3.4); LYMPH % 45.2 % (20.0-51.0); MEAN CELL VOLUME 101 fl (80.0-100.0); MEAN CORPUSCULAR HEMOGLOBIN 34 pg (27.0-31.0); MEAN CORPUSCULAR HGB CONC 33 g/dl (33.0-37.0); MEAN PLATELET VOLUME 8.8 fl (7.4-10.4); MONO # 0.2 (0.1-0.6); MONO % 4.3 % (1.7-9.3); PLATELET COUNT 308 K/mm3 (130-400); RED BLOOD COUNT 3.35 M/mm3 (4.20-5.60); REDCELL DISTRIBUTION WIDTH-CV 13.2 % (11.5-14.5)
[2021-05-10 16:03] LABS: HEMATOCRIT 33.9 % (42.0-52.0)
[2021-05-10 16:12] LABS: ALANINE AMINOTRANSFERASE 14 U/L (4-49); ALBUMIN 3.3 gm/dL (3.5-5.0); ALKALINE PHOSPHATASE 58 U/L (50-136); ANION GAP 4 mmol/L (7-16); AST,SGOT 27 U/L (15-37); BILIRUBIN,TOTAL 0.4 mg/dL (0.0-1.0); BLOOD UREA NITROGEN 22 mg/dL (9-20); CALCIUM 8.6 mg/dL (8.4-10.2); CARBON DIOXIDE 28 mmol/L (22-30); CHLORIDE 98 mmol/L (98-107); CREATININE, serum 0.66 (0.66-1.25); GLUCOSE 102 mg/dL (74-106); POTASSIUM 3.8 mmol/L (3.4-5.0); SODIUM 130 mmol/L (137-145); TOTAL PROTEIN 5.8 gm/dL (6.4-8.2)
[2021-05-10 16:14] LABS: C-REACTIVE PROTEIN < 0.5 mg/dL (0.0-0.9)
[2021-05-10 16:16] LABS: PRE ALBUMIN 23.3 mg/dL (17.6-36.0)
== END ==
LOC: ZLAB.STJ 15:55
PROVIDERS: Family Medicine
DX: J44.9 Chronic obstructive pulmonary disease, unspecified (principal); E55.9 Vitamin D deficiency, unspecified; E44.0 Moderate protein-calorie malnutrition

== ENCOUNTER 2021-08-14 10:36 | Day surgery (SDC) | payer MEDICARE ==
[~2021-08-14] VITALS: Ht 193 cm; Wt 75.2 kg
[~2021-08-14 10:36] MED LIST changes: -CARDURA 1MG1 MG PO; -DIGITEK0.125 MG PO; -NORCO 325 MG-51 TAB PO; -ONE-A-DAY ESSE1 EACH PO; -OXYGEN NASAL.CANN; -PRILOTC PO; -PROVENTIL0.09 MG/A1 IH; -SENOKOT S 50 MG1 TAB PO; -SSKI1 GM/ML PO; -THEO-24100 MG PO; -VITAMIN D31000 IU PO; -ZITHROMAX500 M2 PO
[2021-08-14] MEDS ORDERED: ASPIRIN E.C. 8181 MG PO (11:12)
[2021-08-14] MEDS ORDERED: VITAMIN D31000 IU PO (11:13)
[2021-08-14] MEDS ORDERED: PRILOTC PO (11:14)
[2021-08-14] MEDS ORDERED: 00186-0370-20 IH (11:14)
[2021-08-14] MEDS ORDERED: ONE-A-DAY ESSE1 EACH PO (11:14)
[2021-08-14] MEDS ORDERED: DIGITEK0.125 MG PO (11:16)
[2021-08-14] MEDS ORDERED: SSKI1 GM/ML PO (11:17)
[2021-08-14] MEDS ORDERED: SPIRIVA RE2.5 MCG/Ac IH (11:18)
[2021-08-14] MEDS ORDERED: ZITHROMAX500 M2 PO (11:20)
[2021-08-14] MEDS ORDERED: PROSCAR 5MG5 MG PO (11:21)
[2021-08-14] MEDS ORDERED: THEO-24100 MG PO (11:21)
[2021-08-14] MEDS ORDERED: CLARITIN 1010 MG/TAB PO (11:22)
[2021-08-14] MEDS ORDERED: SENOKOT S 50 MG1 TAB PO (11:23)
[2021-08-14] MEDS ORDERED: CARDURA 1MG1 MG PO (11:24)
[2021-08-14] MEDS ORDERED: OXYGEN NASAL.CANN (11:25)
[2021-08-14] MEDS ORDERED: PROVENTIL0.09 MG/A1 IH (11:27)
[2021-08-14 11:30] VITALS: BP 111/71; PULSE 83; TEMP 97.5
[2021-08-14] MEDS ORDERED: NORCO 325 MG-51 TAB PO (14:05)
[2021-08-14 14:40] VITALS: BP 100/66; PULSE 72; TEMP 97.5
[2021-08-14 14:55] VITALS: BP 117/63; PULSE 76
[2021-08-14 15:10] VITALS: BP 106/66; PULSE 93
[2021-08-14 15:20] VITALS: BP 100/66; PULSE 67; TEMP 97.6
--- NOTE | 2021-08-14 15:49 | NUR ---
1440: Patient arrived back from PACU. Report recieved from BRANDON Duarte. Patient doing well. Reports "heaviness" in legs. Vital signs stable. 1455: Patient doing well. Requesting apple juice and toast. Tolerated well. [id number]: Patient refusing to try and void prior to being discharged stated he didn't want to wait around here to pee and is requesting to leave at this time. Got dressed with the assistance of 2. Dr. Shelton notified of patient wanting to leaving without voiding and was okay with him leaving. Report given to BRANDON Strong at [facility]. And notified them of needing transportation of back to the facility and was told that they would be here around 4pm. IV removed. 1545: Patient doing well. 1555: Patient escorted to ED entrance where facility van met us. Left with facility transporter.
== END 2021-08-14 15:55 ==
LOC: SDCO 10:36
DX: K40.90 Unilateral inguinal hernia, without obstruction or gangrene, not specified as recurrent (principal); J43.9 Emphysema, unspecified; Z99.81 Dependence on supplemental oxygen; E53.8 Deficiency of other specified B group vitamins; K21.9 Gastro-esophageal reflux disease without esophagitis; Z87.891 Personal history of nicotine dependence; M19.90 Unspecified osteoarthritis, unspecified site; N40.0 Benign prostatic hyperplasia without lower urinary tract symptoms; Z79.51 Long term (current) use of inhaled steroids; K59.00 Constipation, unspecified; Z79.82 Long term (current) use of aspirin; Z79.1 Long term (current) use of non-steroidal anti-inflammatories (NSAID)
CPT/HCPCS: C1781; J2250; J2704; J3010; J7120

== ENCOUNTER → 2021-08-21 | Outpatient (CLI) | payer MEDICARE ==
[~2021-08-21] MED LIST changes: +CARDURA 1MG1 MG PO; +DIGITEK0.125 MG PO; +NORCO 325 MG-51 TAB PO; +ONE-A-DAY ESSE1 EACH PO; +OXYGEN NASAL.CANN; +PRILOTC PO; +PROVENTIL0.09 MG/A1 IH; +SENOKOT S 50 MG1 TAB PO; +SSKI1 GM/ML PO; +THEO-24100 MG PO; +VITAMIN D31000 IU PO; +ZITHROMAX500 M2 PO
== END ==
LOC: ZLAB.STJ 10:12
DX: Z01.89 Encounter for other specified special examinations (principal)

== ENCOUNTER → 2022-02-18 | Outpatient (CLI) | payer MEDICARE | LOC: ZLAB.STJ 16:03 | DX: Z51.81 Encounter for therapeutic drug level monitoring (principal) ==